=== PATIENT | male | born 1950 | race Caucasian/White ===

== ENCOUNTER 2022-02-14 05:53 | Day surgery (SDC) | payer OTHER ==
[2022-02-14] MEDS ORDERED: Ringers Lactate 1,000 ML IV ONE (07:01)
[2022-02-14] MEDS ORDERED: EPINEPHRINE/PF 1 MG/ML AMP ONE (08:04)
[2022-02-14] MEDS ORDERED: LIDOCAINE 1% MPF 5 ML VIAL ONE (08:22)
[2022-02-14] MEDS ORDERED: propofoL 200 MG/20 ML VIAL IV ONE (08:22)
--- NOTE | 2022-02-14 08:52 | ENDO RPT ---
[address], [address] EGD PROCEDURE REPORT EXAM DATE: 02/14/2022 PATIENT NAME: Nitesh Morse MR#: [id number] BIRTHDATE: 1950 ATTENDING: Gilberto Ordoñez DR STATUS: outpatient TEST DRILLER: Jean Johnson and Gisselle Maldonado RN INDICATIONS: The patient is a 71 yr old Male here for an EGD due to GERD and dyspepsia PROCEDURE PERFORMED: EGD with biopsy for H. pylori MEDICATIONS: Per Anesthesia. TOPICAL ANESTHETIC: none CONSENT: The patient understands the risks and benefits of the procedure and understands that these risks include, but are not limited to: sedation, allergic reaction, infection, perforation and/or bleeding. Alternative means of evaluation and treatment include, among others: physical exam, x-rays, and/or surgical intervention. The patient elects to proceed with this endoscopic procedure. DESCRIPTION OF PROCEDURE: During intra-op preparation period all mechanical medical equipment was checked for proper function. Hand hygiene and appropriate measures for infection prevention was taken. Procedure, possible complications, and alternatives including but not limited to the possibility of bleeding, perforation, tear, infection, sepsis, need for surgery, need for blood transfusion, and anesthesia related complications were explained to the patient. After the risks, benefits and alternatives of the procedure were thoroughly explained, Informed consent was verified, confirmed and timeout was successfully executed by the treatment team. The patient was placed in the left lateral position. The patient was anesthetized with topical anesthesia. Through the anesthetized oropharyngeal area, the scope was passed without any difficulty. The Pentax EG-[id number] ([id number]) endoscope was introduced through the mouth and advanced to the third portion of the duodenum. Retroflexed views revealed a small hiatal hernia. The gastroscope was then slowly withdrawn and removed. Mild Atrophic gastritis was found in the body and the antrum of the stomach. Multiple biopsies were obtained and sent to pathology. With standard forceps, a biopsy was obtained and sent to pathology. A biopsy for H. pylori was taken. A pedunculated polyp was found in the body and the antrum of the stomach. likely benign fleshy Monopolar cautery was performed. Polyp was snared, then cauterized with monopolar cautery. Polyp was retrieved and sent to pathology. With a snare, a biopsy was obtained and sent to pathology. ADVERSE EVENTS: There were no complications. IMPRESSIONS: 1. Mild Atrophic gastritis was found in the body and the antrum of the stomach 2. A pedunculated polyp was found in the body and the antrum of the stomach 3. Hiatus hernia RECOMMENDATIONS: 1. anti-reflux regimen 2. avoid NSAIDS 3. follow-up: office 2 week(s) 4. follow-up of helicobacter pylori status, treat if indicated 5. gastric emptying study REPEAT EXAM: Gilberto Ordoñez DR eSigned: Gilberto Ordoñez DR 02/14/2022 8:51 AM cc: CPT CODES: ICD9 CODES: PATIENT NAME: Nitesh Morse MR#: [id number]
[2022-02-14 09:26] VITALS: BP 112/72; TEMP 97.7; O2SAT 99
== END 2022-02-14 09:20 | disposition home or self-care (01) ==
LOC: OR 05:53
PROVIDERS: ATTEND Surgery
PROC: 0DB68ZX Excision of Stomach, Via Natural or Artificial Opening Endoscopic, Diagnostic (ICD-10-PCS; 2022-02-14)
PROC: 0DB48ZX Excision of Esophagogastric Junction, Via Natural or Artificial Opening Endoscopic, Diagnostic (ICD-10-PCS; 2022-02-14)
PROC: 0DB78ZX Excision of Stomach, Pylorus, Via Natural or Artificial Opening Endoscopic, Diagnostic (ICD-10-PCS; 2022-02-14)
PROC: 0DB98ZX Excision of Duodenum, Via Natural or Artificial Opening Endoscopic, Diagnostic (ICD-10-PCS; principal; 2022-02-14 08:30)
DX: K21.9 Gastro-esophageal reflux disease without esophagitis (principal); K40.21 Bilateral inguinal hernia, without obstruction or gangrene, recurrent; K29.50 Unspecified chronic gastritis without bleeding; K44.9 Diaphragmatic hernia without obstruction or gangrene; K31.7 Polyp of stomach and duodenum
CPT/HCPCS: 88312 ×2; 88305; 43251; 43239; J2704; J0171; J2001; J7120

== ENCOUNTER 2022-03-03 07:23 | Day surgery (SDC) | payer OTHER ==
[2022-03-01 09:13] LABS: Potassium 4.1 mmol/L (3.5-5.1)
[2022-03-03] MEDS ORDERED: propofoL 200 MG/20 ML VIAL IV ONE (08:01)
[2022-03-03] MEDS ORDERED: ONDANSETRON 4 MG/2 ML VIAL ONE (08:01)
[2022-03-03] MEDS ORDERED: KETOROLAC 30 MG/ML INJ ONE (08:01)
[2022-03-03] MEDS ORDERED: dexAMETHasone 4 MG/ML VIAL ONE (08:01)
[2022-03-03] MEDS ORDERED: LIDOCAINE 2% MPF 5 ML VIAL ONE (08:01)
[2022-03-03] MEDS ORDERED: ROCURONIUM 50 MG/5 ML VIAL IV ONE (08:01)
[2022-03-03] MEDS ORDERED: FENTANYL CITR 100 MCG/2 ML ONE (08:01)
[2022-03-03] MEDS: CEFAZOLIN SODIUM 1 GM/VIAL ONE ×2 (08:13→08:32)
[2022-03-03] MEDS: BUPIVACAINE 0.25% PF 10 ML VIAL ONE ×2 (08:14→08:53)
[2022-03-03] MEDS ORDERED: MIDAZOLAM HCL 2 MG/2 ML INJ ONE (08:23)
[2022-03-03] MEDS: Ringers Lactate 1,000 ML IV ONE ×2 (08:32→08:50)
[2022-03-03] MEDS ORDERED: NS 0.9% VIAL 10 ML ONE ×3 (08:55→10:35)
[2022-03-03] MEDS ORDERED: Ringers Lactate 1,000 ML IV ONE (09:29)
[2022-03-03] MEDS ORDERED: GLYCOPYRROLATE 0.2 MG/ML SYR ONE ×2 (09:35→10:51)
[2022-03-03] MEDS ORDERED: NEOSTIGMINE 1 MG/ML -10 ML VIAL ONE (10:48)
--- NOTE | 2022-03-03 11:00 | P.OP ---
Preoperative diagnosis: Bilateral Recurrent Inguinal Hernias Postoperative diagnosis: Bilateral Recurrent Inguinal Hernias Primary procedure: Open Bilateral Inguinal Hernia Repair with mesh Anesthesia: GETA + Local Estimated blood loss: <5cc Specimen: Cord Lipoma, hernia contents - adipose Findings: Recurrent RIGHT ing hernia, severe scar, mesh displaced Complications: None Implants: Bard Perfix plug and patch, small on Right, large on LEFT Transferred to: Recovery Room Condition: Good
[2022-03-03 11:32] VITALS: O2SAT 99
--- NOTE | 2022-03-03 11:43 | OP ---
Date of Procedure: 03/03/2022 Surgeon: Gilberto Ordoñez MD, Preoperative Diagnosis: Bilateral inguinal hernias, recurrent on the right. Postoperative Diagnosis: Bilateral inguinal hernias, recurrent on the right. Procedure Performed: Open bilateral inguinal hernia repair with mesh. Anesthesia: General endotracheal plus local with 0.25% Marcaine. Estimated Blood Loss: Less than 5 cc. Specimen: 1.Cord lipoma. 2.Hernia contents, which are adipose tissue. Findings: Recurrent right inguinal hernia with severe scar. The previously placed mesh was a plug a nd patch, which appeared to have a misplaced patch, which was on top of the spermatic cord and struct ures and the external oblique aponeurosis was essentially obliterated on the right side. Left inguin al hernia was an indirect type. A large Bard PerFix plug and patch was placed into this location. Complications: None. Implants: Bard PerFix plug and patch hernia repair system, small on the right, large on the left. Disposition: The patient was transferred to the recovery room in good condition. Procedure In Detail: After informed consent was obtained, the patient was brought to the operating r oom, prepped and draped in the usual fashion after adequate anesthesia was achieved. I made an incis ion overlying the previous incision on the right inguinal hernia region. I dissected down through Ca mper fat and Alida fascia to the region where the external oblique aponeurosis should have been diss ected more medially and followed the anatomic landmarks of the rectus sheath laterally and the green prize packer al oblique aponeurosis was noted to be obliterated at this point. I encountered severe scar tissue u sing gentle traction on the testicle. I was able to help identify the region of the spermatic cord a nd structures. After extensive dissection and meticulous dissection of significant amount of scar ti ssue, I was able to encircle the spermatic cord and structures, which were not contained within the e xternal oblique aponeurosis due to significant scar tissue and the mesh previously placed was palpate d and found to be malpositioned. It was in the lie anterior to the spermatic cord and structures and not in the normal repair position. I also palpated a plug within the inguinal ring, which was sligh tly malpositioned medially. At this point, I skeletonized the structures to identify the spermatic c ord and structures. I then sized the hernia defect, which was found to be a direct inguinal hernia. Adipose tissue was evident within the hernia. This was ligated and sent off for pathologic examinat ion. I then digitized the area. A loop of bowel was pushed back in the normal preperitoneal space. I imbricated the hernia sac and then placed a small Bard PerFix plug within the space and secured it circumferentially around using 2-0 PDS sutures. The patient Valsalva tested, did not show any defec ts at this point. I then sized a hernia patch and placed it under the spermatic cord and structures securing it to the pubic tubercle medial side and to the undersurface of the inguinal ligament latera lly and the shelving edge medially and reconstituted the deep inguinal ring at this point. I then cl osed the Camper fat and Alida fascia en bloc over the top as the external oblique aponeurosis could not be identified and then closed deep dermal to tissue over the top and closed the skin with a 4-0 M onocryl in a running fashion. Dermabond placed over top. The patient tolerated the procedure well w ithout evidence of complication. At this point, I then turned my attention to left inguinal hernia. In a similar fashion, I made an inguinal incision down to subcutaneous tissues. I then dissected do wn through Camper fat and Alida fascia to expose the external oblique aponeurosis. At this point, t his was opened sharply in its entirety. I then dissected around circumferentially the spermatic cord and structures. A cord lipoma was appreciated. This was dissected free from the spermatic cord and structures. I then dissected the hernia sac, which was on a medial aspect consistent with an indire ct inguinal hernia. I then imbricated the sac and placed it back in the preperitoneal space and size d a large Bard PerFix plug and patch hernia repair system. I placed a plug in the preperitoneal spac e. At this point, I circumferentially secured it around using 2-0 PDS sutures in an interrupted fas ion. I then sized the hernia patch appropriately, placed it to the pubic tubercle medially, and secu red to the shelving edge of the internal oblique aponeurosis as well as the undersurface of the ingui nal ligament circumferentially around reconstituting the deep inguinal ring all with a 2-0 PDS suture in an interrupted fashion. I then irrigated the area copiously, dried, and closed the external obli que aponeurosis with 3-0 Vicryl suture in a running fashion. I closed the deep dermal plane over the top also in addition to the Camper fat and Alida fascia in an interrupted fashion with 3-0 Vicryl s utures. The skin was then closed with a 4-0 Monocryl in a running fashion. Dermabond placed over to p. The patient tolerated the procedure well without evidence of complication and transferred to PACU in good condition. All counts were correct at the end of the case. SYLVIA/JAIR Voice ID: [id number] Report ID: [id number]
[2022-03-03 12:04] VITALS: BP 125/68; TEMP 97.4
[2022-03-03] MEDS ORDERED: HYDROCODONE/APAP 7.5/325 MG TAB ONE (12:47)
--- NOTE | 2022-03-03 18:13 | EKG ---
Test Date: 2022-03-01 Test Time: 08:38:19 Rotary Engraver: CHILO MEASUREMENT RESULTS: Intervals: Rate: 62 AR: 186 QRSD: 94 QT: 410 QTc: 416 [place]: P: 42 AR: 186 QRS: -48 T: 47 INTERPRETIVE STATEMENTS: Normal sinus rhythm with sinus arrhythmia Left anterior fascicular block Abnormal ECG No previous ECG available for comparison Electronically Signed On 03-03-22 18:11:10 BUTTER FAT TESTER by Hany Shanks
== END 2022-03-03 12:50 | disposition home or self-care (01) ==
LOC: OR 07:23
PROVIDERS: ATTEND Surgery
PROC: 0YUA0JZ Supplement Bilateral Inguinal Region with Synthetic Substitute, Open Approach (ICD-10-PCS; principal; 2022-03-03 08:45)
DX: K40.20 Bilateral inguinal hernia, without obstruction or gangrene, not specified as recurrent (principal)
CPT/HCPCS: 93005; 80048; 36415; 88302; 49505; C1781; J2704; J1100; J2710; J2001; J2250; J3010; A4216 ×3; J7120 ×2; J2405; J0690